=== PATIENT | female | born 1995 | race Asian ===

== ENCOUNTER 2023-10-04 11:44 | Emergency (ER) | payer OTHER ==
[~2023-10-04] VITALS: Ht 165.1 cm; Wt 90.2 kg
[2023-10-04] MEDS: predniSONE 20 MG TAB PO ONE (12:58)
[2023-10-04] MEDS: IPRATROPIUM 0.5MG/ALBUTEROL 2.5MG INH SOL UD 3ML (DUONEB) NEB ONE (13:05)
[2023-10-04] MEDS ORDERED: PRED20TA PO (14:09)
[2023-10-04 14:25] VITALS: BP 122/66; TEMP 98.3; O2SAT 96
[2023-10-05] MEDS ORDERED: PRED20TA PO (14:12)
[2023-10-05] MEDS ORDERED: BENZ200C70 PO (14:12)
[2023-10-05] MEDS ORDERED: MUCI600T31 PO (14:12)
== END 2023-10-04 14:42 | disposition home or self-care (01) ==
LOC: M ED 11:44
DX: J06.9 Acute upper respiratory infection, unspecified (principal); J45.901 Unspecified asthma with (acute) exacerbation; F10.10 Alcohol abuse, uncomplicated; Z79.52 Long term (current) use of systemic steroids; Z79.811 Long term (current) use of aromatase inhibitors; Z79.899 Other long term (current) drug therapy
CPT/HCPCS: 71046; 87486; 87581; 87633; 87798; 94640; 99283; J7512

== ENCOUNTER 2023-10-05 10:12 | Emergency (ER) | payer OTHER ==
[~2023-10-05] VITALS: Ht 165.1 cm; Wt 90.2 kg
[~2023-10-05 10:12] MED LIST: PRED20TA PO
[2023-10-05] MEDS: IPRATROPIUM 0.5MG/ALBUTEROL 2.5MG INH SOL UD 3ML (DUONEB) NEB SCH (11:29)
[2023-10-05] MEDS: methylPREDNISolone 125MG 2ML VIAL IV ONE (11:51)
[2023-10-05 12:00] LABS: BASO # 0.1 10^3/uL (0.0-0.2); BASO % 0.4 % (0.0-1.0); EOS # 0.6 10^3/uL (0.0-0.5); EOS % 4.5 % (0.0-3.0); HEMATOCRIT 43.1 % (36.0-47.0); LYMPH # 1.7 10^3/uL (1.5-5.0); LYMPH % 12.9 % (24.0-44.0); MEAN CORPUSCULAR HEMOGLOBIN 29.8 pg (27.0-33.0); MEAN CORPUSCULAR HGB CONC 34.8 g/dl (32.0-36.5); MEAN CORPUSCULAR VOLUME 85.7 fl (80.0-96.0); MONO % 7.2 % (2.0-8.0); NEUTROPHILS # 10.1 10^3/uL (1.5-8.5); NEUTROPHILS % 74.6 % (36.0-66.0); PLATELET COUNT, AUTOMATED 303 10^3/uL (150-450); RED BLOOD COUNT 5.03 10^6/uL (4.00-5.40); WHITE BLOOD COUNT 13.5 10^3/uL (4.0-10.0)
[2023-10-05 12:30] LABS: BLOOD UREA NITROGEN 9 MG/DL (9-23); CALCIUM LEVEL 9.7 MG/DL (8.5-10.1); CARBON DIOXIDE LEVEL 26 MMOL/L (20-31); CHLORIDE LEVEL 104 MMOL/L (98-107); CREATININE FOR GFR 0.68 MG/DL (0.55-1.30); GLOMERULAR FILTRATION RATE > 60.0 (>60); GLUCOSE, FASTING 95 MG/DL (60-100); POTASSIUM SERUM 4.6 MMOL/L (3.5-5.1); SODIUM LEVEL 136 MMOL/L (136-145)
[2023-10-05 12:32] LABS: HCG, SERUM QUALITATIVE NEGATIVE (NEGATIVE)
[2023-10-05] MEDS ORDERED: MUCI600T31 PO (14:12)
[2023-10-05] MEDS ORDERED: PRED20TA PO (14:12)
[2023-10-05] MEDS ORDERED: BENZ200C70 PO (14:12)
[2023-10-05 14:26] VITALS: BP 118/64; TEMP 98.9; O2SAT 97
== END 2023-10-05 14:27 | disposition home or self-care (01) ==
LOC: M ED 11:19
DX: J45.901 Unspecified asthma with (acute) exacerbation (principal); J20.9 Acute bronchitis, unspecified; B34.8 Other viral infections of unspecified site
CPT/HCPCS: 80048; 84703; 85025; 85379; 93005; 94640; 94664; 96374; 99284; J2919